=== PATIENT | male | born 1945 | race Caucasian/White ===

== ENCOUNTER 2018-05-12 14:21 | Observation (INO) ==
--- NOTE | 2018-05-12 14:55 | ED ---
HPI General Chief Complaint: Shortness of Breath/Dyspnea Stated Complaint: [facility] Time Seen by Provider: 05/12/18 14:49 Source: patient Mode of arrival: EMS Limitations: no limitations History of Present Illness Patient has been complaining of progressive shortness of breath, [facility] chest which showed a right-sided pleural effusion moderate in size. And afterwards told the patient to call 911 to have the patient transferred to [facility]. Please see allergy list Past medical history significant for [place], hypertension, COPD, anemia, skin cancer , depression, TIA, sleep apnea, lung cancer with malignant effusion in the past , renal disease, mitral valve regurgitation, diabetes... According to patient he had lung fluid drained approximately 1-1/2 years ago. Last lung treatment chemo etc. back in 2011. Related Data Home Medications Medication Instructions Recorded Confirmed alprazolam 0.25 mg PO BID PRN 05/12/18 05/12/18 atenolol 25 mg PO DAILY 05/12/18 05/12/18 budesonide-formoterol 2 puff INHALATION BID 05/12/18 05/12/18 finasteride 5 mg PO DAILY 05/12/18 05/12/18 mirtazapine 15 mg PO DAILY 05/12/18 05/12/18 omeprazole 20 mg PO DAILY 05/12/18 05/12/18 rosuvastatin 40 mg PO DAILY 05/12/18 05/12/18 sertraline 50 mg PO DAILY 05/12/18 05/12/18 tamsulosin 0.4 mg PO DAILY 05/12/18 05/12/18 tiotropium bromide 1 cap INHALATION DAILY 05/12/18 05/12/18 warfarin 5 mg PO DAILY 05/12/18 05/12/18 Allergies Allergy/AdvReac Type Severity Reaction Status Date / Time fluvastatin Allergy Muscle Pain Verified 05/12/18 14:38 gemfibrozil Allergy Muscle Pain Verified 05/12/18 14:38 ipratropium Allergy Hives Verified 05/12/18 14:38 meloxicam Allergy Rash Verified 05/12/18 14:38 methocarbamol Allergy Rash Verified 05/12/18 14:38 niacin Allergy Muscle Pain Verified 05/12/18 14:38 pravastatin Allergy Burning Verified 05/12/18 14:38 simvastatin Allergy Joint Pain Verified 05/12/18 14:38 Review of Systems ROS: all other systems reviewed are negative [facility] Medical History Medical History Anemia (Acute) COPD (chronic obstructive pulmonary disease) (Acute) Depression (Acute) Diabetes (Acute) GERD (gastroesophageal reflux disease) (Acute) HTN (hypertension) (Acute) Lung cancer (Acute) Mitral valve regurgitation (Acute) Myocardial infarct (Acute) Renal disease (Acute) Skin cancer (Acute) Sleep apnea (Acute) TIA (transient ischemic attack) (Acute) Social History Social History Substance History: No History of Abuse Second Hand Smoke Exposure: No Smoking Status: Light tobacco smoker Tobacco Type: Cigarettes How Often Do You Have a Drink Containing Alcohol: Never Recent Travel in [facility] within the Last 8 Weeks: No Recent Out of Country Travel within the Last 8 Weeks: No Immunization History Tetanus Immunization: <5 Years Exam Narrative Exam Narrative: GENERAL: ELDERLY MALE IN no apparent distress. SKIN: Warm and dry. HEAD: Atraumatic. Normocephalic. EYES: Pupils equal and round. No scleral icterus. No injection or drainage. ENT: No nasal bleeding or discharge. Mucous membranes pink and moist. NECK: Trachea midline. No JVD. CARDIOVASCULAR: Regular rate and rhythm. no rubs or gallops RESPIRATORY: No accessory muscle use. Clear to auscultation. LUNG FIELD DECREASED SOUNDS ON RIGHT BUT PRESENT. GASTROINTESTINAL: Abdomen soft, non-tender, nondistended. No rebound or guarding MUSCULOSKELETAL: Extremities without clubbing, cyanosis, or edema. No obvious deformities. NEUROLOGICAL: Awake and alert. No obvious cranial nerve deficits. Motor grossly within normal limits. Five out of 5 muscle strength in the arms and legs. Normal speech. PSYCHIATRIC: Appropriate mood and affect; insight and judgment normal. Course Initial Documented Vital Signs Temperature 97.9 F 05/12/18 14:41 Pulse Rate 64 05/12/18 14:41 Respiratory Rate 21 05/12/18 14:41 Blood Pressure 129/71 05/12/18 14:41 Pulse Oximetry 97 05/12/18 14:41 Last Documented Vital Signs Temperature 97.9 F 05/12/18 14:41 Pulse Rate 64 05/12/18 14:41 Respiratory Rate 21 05/12/18 14:41 Blood Pressure 129/71 05/12/18 14:41 Pulse Oximetry 97 05/12/18 14:41 Sign Out Sign Out Data: Patient Sign Out occurred on 05/12/18 at 15:11. Patient's care was discussed, and care was transferred from Jorje Johnson to Janny Hilton MD. Sign Out Comment: [place] PATIENT WITH MODERATE RIGHT PLEURAL EFFUSION FOR DRAINAGE, OBS Last updated by Jorje Johnson at 05/12/18 15:01 Post-Handoff Eval: Patient has done well in the ED. CXR is clear, but CT report from [place] showed moderate effusion and he does have decreased breath sounds in the R lung base. IR was consulted for drainage by Dr Johnson. The patient has been admitted to the resident service for observation following drainage. Medical Decision Making MDM Narrative Medical Screen Exam Complete: Yes Emergency Medical Condition: Yes Lab Data Result diagrams: 05/12/18 14:53 05/12/18 14:53 Lab Results 05/12/18 05/12/18 05/12/18 Range/Units 14:53 14:53 14:53 WBC 5.4 (4.0-11.0) th/mm3 RBC 4.43 L (4.50-5.90) mil/mm3 Hgb 10.8 L (13.0-17.0) gm/dL Hct 33.8 L (39.0-51.0) % MCV 76.3 L (80.0-100.0) fL MCH 24.5 L (27.0-34.0) pg MCHC 32.1 (32.0-36.0) % RDW 22.8 H (11.6-17.2) % Plt Count 192 (150-450) th/mm3 MPV 7.4 (7.0-11.0) fL Neut % (Auto) 66.3 (16.0-70.0) % Lymph % (Auto) 20.7 (9.0-44.0) % Hays % (Auto) 8.9 H (0.0-8.0) % Eos % (Auto) 3.4 (0.0-4.0) % Baso % (Auto) 0.7 (0.0-2.0) % Neut # (Auto) 3.6 (1.8-7.7) th/mm3 Lymph # (Auto) 1.1 (1.0-4.8) th/mm3 [place]ays # (Auto) 0.5 (0.0-0.9) th/mm3 Eos # (Auto) 0.2 (0.0-0.4) th/mm3 Baso # (Auto) 0.0 (0.0-0.2) th/mm3 WBC Differential . Differential Comment Auto diff final PT 23.4 H (9.8-11.6) sec INR 2.3 Ratio APTT 34.1 H (23.4-31.7) sec Sodium 140 (136-145) meq/L Potassium 3.8 (3.5-5.1) meq/L Chloride 103 (98-107) meq/L Carbon Dioxide 29.3 (21.0-32.0) meq/L Anion Gap 8 (5-15) meq/L BUN 13 (7-18) mg/dL Creatinine 1.09 (0.60-1.30) mg/dL Estimated GFR 67 L (>89) mL/min Random Glucose 86 (74-106) mg/dL Calcium 8.7 (8.5-10.1) mg/dL Total Bilirubin 0.5 (0.2-1.0) mg/dL AST 18 (15-37) U/L ALT 15 (12-78) U/L Alkaline Phosphatase 111 (45-117) U/L Total Creatine Kinase 63 (39-308) U/L Troponin I Less than 0.02 L (0.02-0.05) ng/mL B-Natriuretic Peptide (0-100) pg/mL Total Protein 7.4 (6.4-8.2) g/dL Albumin 3.6 (3.4-5.0) g/dL 05/12/18 Range/Units 14:53 WBC (4.0-11.0) th/mm3 RBC (4.50-5.90) mil/mm3 Hgb (13.0-17.0) gm/dL Hct (39.0-51.0) % MCV (80.0-100.0) fL MCH (27.0-34.0) pg MCHC (32.0-36.0) % RDW (11.6-17.2) % Plt Count (150-450) th/mm3 MPV (7.0-11.0) fL Neut % (Auto) (16.0-70.0) % Lymph % (Auto) (9.0-44.0) % Hays % (Auto) (0.0-8.0) % Eos % (Auto) (0.0-4.0) % Baso % (Auto) (0.0-2.0) % Neut # (Auto) (1.8-7.7) th/mm3 Lymph # (Auto) (1.0-4.8) th/mm3 Hays # (Auto) (0.0-0.9) th/mm3 Eos # (Auto) (0.0-0.4) th/mm3 Baso # (Auto) (0.0-0.2) th/mm3 WBC Differential Differential Comment PT (9.8-11.6) sec INR Ratio APTT (23.4-31.7) sec Sodium (136-145) meq/L Potassium (3.5-5.1) meq/L Chloride (98-107) meq/L Carbon Dioxide (21.0-32.0) meq/L Anion Gap (5-15) meq/L BUN (7-18) mg/dL Creatinine (0.60-1.30) mg/dL Estimated GFR (>89) mL/min Random Glucose (74-106) mg/dL Calcium (8.5-10.1) mg/dL Total Bilirubin (0.2-1.0) mg/dL AST (15-37) U/L ALT (12-78) U/L Alkaline Phosphatase (45-117) U/L Total Creatine Kinase (39-308) U/L Troponin I (0.02-0.05) ng/mL B-Natriuretic Peptide 268 H (0-100) pg/mL Total Protein (6.4-8.2) g/dL Albumin (3.4-5.0) g/dL Imaging Data Radiologist's impression: Chest X-Ray 05/12/18 14:51 CONCLUSION: Chronic interstitial changes and mild cardiomegaly. Discharge Plan Discharge Disposition Patient Disposition: 30 Still Patient Discharge Condition Condition: Stable Discharge Details Diagnosis: Pleural effusion Physicians Team ED Provider: Janny Hilton Primary Care Provider: [facility],Physician [place] /Orders / Referrals /Forms Prescriptions: No Action omeprazole 20 mg Capsule,Delayed Release(Dr/Ec) 20 mg PO DAILY RF: 0 mirtazapine 15 mg Tablet 15 mg PO DAILY RF: 0 finasteride 5 mg Tablet 5 mg PO DAILY RF: 0 rosuvastatin 40 mg Tablet 40 mg PO DAILY RF: 0 sertraline 100 mg Tablet 50 mg PO DAILY RF: 0 alprazolam 0.25 mg Tablet 0.25 mg PO BID PRN (Reason: Anxiety) RF: 0 tamsulosin 0.4 mg Capsule 0.4 mg PO DAILY RF: 0 warfarin 5 mg Tablet 5 mg PO DAILY RF: 0 atenolol 50 mg Tablet 25 mg PO DAILY RF: 0 tiotropium bromide 18 mcg Capsule, W/Inhalation Device 1 cap INHALATION DAILY RF: 0 budesonide-formoterol 160-4.5 mcg/actuation Hfa Aerosol Inhaler 2 puff INHALATION BID RF: 0 Discharge Interventions Interventions: Vital Signs Last Done: 05/12/18 14:41 Status ED Status: With Doctor
[2018-05-12 15:14] LABS: Baso % (Auto) 0.7 % (0.0-2.0); Eos # (Auto) 0.2 th/mm3 (0.0-0.4); Eos % (Auto) 3.4 % (0.0-4.0); Hematocrit 33.8 % (39.0-51.0); Hemoglobin 10.8 gm/dL (13.0-17.0); Lymph # (Auto) 1.1 th/mm3 (1.0-4.8); Lymph % (Auto) 20.7 % (9.0-44.0); Mean Corpuscular HGB Conc 32.1 % (32.0-36.0); Mean Corpuscular Hemoglobin 24.5 pg (27.0-34.0); Mean Corpuscular Volume 76.3 fL (80.0-100.0); Mean Platelet Volume 7.4 fL (7.0-11.0); Mono # (Auto) 0.5 th/mm3 (0.0-0.9); Mono % (Auto) 8.9 % (0.0-8.0); Neut # (Auto) 3.6 th/mm3 (1.8-7.7); Neut % (Auto) 66.3 % (16.0-70.0); Platelet Count 192 th/mm3 (150-450); Red Blood Count 4.43 mil/mm3 (4.50-5.90); Red Cell Distribution Width 22.8 % (11.6-17.2); White Blood Count 5.4 th/mm3 (4.0-11.0)
--- NOTE | 2018-05-12 15:22 | XR ---
EXAM DATE: 05/12/2018 3:19 PM EST AGE/SEX: 72 years / Male INDICATIONS: Shortness of breath. CLINICAL DATA: This is the patient's initial encounter. Patient reports that signs and symptoms have been present for 2 days and indicates a pain score of 0/10. MEDICAL/SURGICAL HISTORY: Hypertension. Chronic obstructive pulmonary disease. Diabetes. None . COMPARISON: No prior exams available for comparison. FINDINGS: The cardiac and mediastinal contours demonstrate mild cardiomegaly. There are chronic interstitial ch anges within the parenchyma. There is no overt congestive failure. No pleural effusion is seen. The b julio structures demonstrate degenerative changes in the AC joint but are otherwise intact. CONCLUSION: Chronic interstitial changes and mild cardiomegaly. Electronically signed by: Quinton Sierra MD 05/12/2018 3:21 PM EST
[2018-05-12 15:30] LABS: Activated Partial Thrombo Time 34.1 sec (23.4-31.7); INR 2.3 Ratio; Prothrombin Time 23.4 sec (9.8-11.6)
[2018-05-12 15:37] LABS: Albumin 3.6 g/dL (3.4-5.0); Anion Gap 8 meq/L (5-15); Aspartate Aminotransferase 18 U/L (15-37); Blood Urea Nitrogen 13 mg/dL (7-18); Calcium 8.7 mg/dL (8.5-10.1); Carbon Dioxide 29.3 meq/L (21.0-32.0); Chloride 103 meq/L (98-107); Glomerular Filtration Rate 67 mL/min (>89); Glucose,Random 86 mg/dL (74-106); Potassium 3.8 meq/L (3.5-5.1); Sodium 140 meq/L (136-145)
[2018-05-12 15:41] LABS: Alanine Aminotransferase 15 U/L (12-78); Alkaline Phosphatase 111 U/L (45-117); Total Protein 7.4 g/dL (6.4-8.2)
[2018-05-12 15:42] LABS: Creatine Kinase 63 U/L (39-308)
--- NOTE | 2018-05-12 16:30 | P.HPFP ---
History of Present Illness Primary Care Physician: [facility]ician [facility] <Quinten Davenport - 05/12/18 21:08> [facility] <DarlynmojganvelmaCong - 05/12/18 17:12> History of Present Illness: Very pleasant 72 year old man with a h/o lung cancer , radiation fibrosis of the lungs, a-fib, prior MO, T2DM, CKD, MVR, prior TIA, iron-deficiency anemia, and HTN who was sent to the ED from the [facility] after a CT chest w/o contrast today showed: recurrent moderate right sided pleural effusion , new trace left pleural effusion, minimally increased airspace disease at the right lung apex, increased right lower lobe nodular opacities measuring up to 0.4 x 0.6 cm. The patient presented to the [facility] ED due to progressive dyspnea. He reports he was diagnosed with lung cancer back in 2008 and underwent chemo and radiation therapy up until early 2011. He states he has been in remission since then. The patient reports he had been treated for pneumonia in the past most recently about one year ago, and does report having had issues with recurrent pleural effusion; however he denies ever having had a thoracentesis in the past. He denies shortness of breath currently. He denies chest tightness, chest pain, cough, fevers, headaches, abdominal pain. He states he otherwise feels well. Has been feeling dyspneic for about the past one week. He follows with an oncologist at the [facility], Dr. Allen. 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 Currently lives with his daughter. Endorses heavy cigarette smoking history up to 2-3 PPD for 40 years but now smoking just a few cigarettes every other day for the past ten days. <PaulCong horn - 05/12/18 17:28> - Diagnosis (1) Pleural effusion (2) Dyspnea (3) Anemia (4) Hypertension (5) BPH (benign prostatic hyperplasia) (6) COPD (chronic obstructive pulmonary disease) (7) Atrial fibrillation (8) T2DM (type 2 diabetes mellitus) (9) Lung cancer (10) Depression (11) CKD (chronic kidney disease) <DevinQuinten chase 05/12/18 21:08> (1) Pleural effusion (2) Dyspnea (3) Anemia (4) Hypertension (5) BPH (benign prostatic hyperplasia) (6) COPD (chronic obstructive pulmonary disease) (7) Atrial fibrillation (8) T2DM (type 2 diabetes mellitus) (9) Lung cancer (10) Depression (11) CKD (chronic kidney disease) <MaggyCong 05/12/18 17:12> Review of Systems Constitutional: Denies body ache(s), Denies chills, Denies fever(s), Denies malaise, Denies night sweats <[facility] 05/12/18 17:12> Eyes: Denies change in vision, Denies double vision <[facility] 05/12 17:12> Ears, Nose, Mouth, and Throat: Denies headache(s), Denies neck pain < [facility] 05/12/18 17:12> Cardiovascular: Reports shortness of breath, Denies chest pain, Denies chest pain at rest <[facility] 05/12/18 17:12> Respiratory: Reports shortness of breath, Denies cough <[facility] 17:12> Gastrointestinal: Reports heartburn, Denies abdominal pain, Denies black, tarry stools, Denies change in bowel habits, Denies cramping, Denies nausea < [facility] 05/12/18 17:12> Genitourinary: Denies decreased urination, Denies difficulty urinating, Denies urinary frequency, Denies urinary incontinence, Denies urinary urgency < DarlynismaCong 05/12/18 17:12> [facility] - History History Provided By: Patient <DarlynismaCong 05/12/18 16:30> - Medical History Medical History: Medical History (Last Reviewed 05/12/18 @ 14:54 by Jorje Johnson) Anemia COPD (chronic obstructive pulmonary disease) Depression Diabetes GERD (gastroesophageal reflux disease) HTN (hypertension) Lung cancer Mitral valve regurgitation Myocardial infarct Renal disease Skin cancer Sleep apnea TIA (transient ischemic attack) <Quinten Davenport - 05/12/18 21:08> Medical History (Last Reviewed 05/12/18 @ 14:54 by Jorje Johnson) Anemia COPD (chronic obstructive pulmonary disease) Depression Diabetes GERD (gastroesophageal reflux disease) HTN (hypertension) Lung cancer Mitral valve regurgitation Myocardial infarct Renal disease Skin cancer Sleep apnea TIA (transient ischemic attack) <Cong Winter 05/12/18 16:30> - Tobacco History Second Hand Smoke Exposure: No <Cong Winter 05/12/18 16:30> Tobacco Use In Past 30 Days: Yes <Cong Winter 05/12/18 16:30> Smoking Status: Light tobacco smoker <Cong Winter 05/12/18 16:30> Tobacco Type: Cigarettes <Cong Winter 05/12/18 16:30> - Alcohol History How Often Do You Have a Drink Containing Alcohol: Never <Cong Winter 05/12/18 16:30> - Substance Use History Substance History: No History of Abuse <Cong Winter 05/12/18 16:30> - Travel History Recent Travel in the [facility] Within the Last 8 Weeks: No <Cong Winter 16:30> Recent Travel Out of the Country Within the Last 8 Weeks: No <Cong Winter 05/12/18 16:30> - Immunization History Tetanus Immunization: <5 Years <Cong Winter 05/12/18 16:30> Medications and Allergies Allergies Allergy/AdvReac Type Severity Reaction Status Date / Time fluvastatin Allergy Muscle Pain Verified 05/12/18 14:38 gemfibrozil Allergy Muscle Pain Verified 05/12/18 14:38 ipratropium Allergy Hives Verified 05/12/18 14:38 meloxicam Allergy Rash Verified 05/12/18 14:38 methocarbamol Allergy Rash Verified 05/12/18 14:38 niacin Allergy Muscle Pain Verified 05/12/18 14:38 pravastatin Allergy Burning Verified 05/12/18 14:38 simvastatin Allergy Joint Pain Verified 05/12/18 14:38 <Quinten Davenport - 05/12/18 21:08> Home Medications Medication Instructions Recorded Confirmed Type alprazolam 0.25 mg PO BID PRN 05/12/18 05/12/18 History atenolol 25 mg PO DAILY 05/12/18 05/12/18 History budesonide-formoterol 2 puff INHALATION BID 05/12/18 05/12/18 History finasteride 5 mg PO DAILY 05/12/18 05/12/18 History mirtazapine 15 mg PO DAILY 05/12/18 05/12/18 History omeprazole 20 mg PO DAILY 05/12/18 05/12/18 History rosuvastatin 40 mg PO DAILY 05/12/18 05/12/18 History sertraline 50 mg PO DAILY 05/12/18 05/12/18 History tamsulosin 0.4 mg PO DAILY 05/12/18 05/12/18 History tiotropium bromide 1 cap INHALATION DAILY 05/12/18 05/12/18 History warfarin 5 mg PO DAILY 05/12/18 05/12/18 History <Quinten Davenport K - 05/12/18 21:08> Active Medications: Active Medications Acetaminophen (Tylenol) 650 mg PO Q4H PRN PRN Reason: Temp > 100.4 Al Hydroxide/Mg Hydroxide (Milk Of Magnesia Liq) 30 ml PO Q12H PRN PRN Reason: Mild Constipation Albuterol (Albuterol Neb (Prn)) 2.5 mg NEB Q2HR NEB PRN PRN Reason: SHORTNESS OF BREATH/WHEEZING Alprazolam (Xanax) 0.25 mg PO Q8H PRN PRN Reason: ANXIETY Atenolol (Tenormin) 25 mg PO DAILY RAMIN Bisacodyl (Dulcolax Supp) 10 mg RECTAL DAILY PRN PRN Reason: SEVERE CONSITIPATION Budesonide/Formoterol Fumarate (Symbicort 160/4.5 Mcg Inh) 2 puff INH BID [facility] Last Admin: 05/12/18 20:56 Dose: 2 puff Dextrose (D50w Vial) 50 ml IV.PUSH UNSCH PRN PRN Reason: PER HYPOGLYCEMIA PROTOCOL Finasteride (Proscar) 5 mg PO DAILY RAMIN Gabapentin (Neurontin) 300 mg PO HS RAMIN Last Admin: 05/12/18 20:57 Dose: 300 mg Glucagon (Glucagon Inj) 1 mg OTHER PRN PRN PRN Reason: for Hypoglycemia Protocol Insulin Aspart (Novolog Insulin Correctional Sugar Inj) 0 unit SQ ACHS AND 3AM RAMIN; Protocol Last Admin: 05/12/18 18:05 Dose: Not Given Lactulose (Lactulose Liq) 30 ml PO DAILY PRN PRN Reason: SEVERE CONSITIPATION Mirtazapine (Remeron) 15 mg PO HS [facility] Last Admin: 05/12/18 20:57 Dose: 15 mg Ondansetron HCl (Zofran Inj) 4 mg IV.PUSH Q6H PRN PRN Reason: NAUSEA OR VOMITING Pantoprazole Sodium (Protonix) 20 mg PO DAILY [facility] Senna/Docusate Sodium (Rosa-Colace) 1 tab PO BID [facility] Last Admin: 05/12/18 20:57 Dose: Not Given Sertraline HCl (Zoloft) 50 mg PO DAILY [facility] Tamsulosin HCl (Flomax) 0.4 mg PO DAILY [facility] <Quinten Davenport - 05/12/18 21:08> Exam Vital signs: Vital Signs 05/12/18 14:41 05/12/18 14:51 05/12/18 16:59 Temperature 97.9 F Pulse Rate 64 62 Respiratory Rate 21 18 Blood Pressure 129/71 129/71 Pulse Oximetry 97 98 97 05/12/18 18:08 05/12/18 19:17 05/12/18 20:00 Temperature 98.1 F 98.2 F Pulse Rate 69 64 67 Respiratory Rate 21 Blood Pressure 142/71 H 134/71 Pulse Oximetry 97 96 Intake & Output 05/12/18 05/12/18 05/13/18 06:59 18:59 06:59 Weight 109.316 kg Other: Date of Last Bowel Movement 05/12/18 <Quinten Davenport Ana - 05/12/18 21:08> Vital Signs 05/12/18 14:41 Temperature 97.9 F Pulse Rate 64 Respiratory Rate 21 Blood Pressure 129/71 Pulse Oximetry 97 Intake & Output 05/11/18 05/12/18 05/12/18 18:59 06:59 18:59 Weight 109.316 kg <Kristen Wintersh - 05/12/18 16:30> Narrative: GENERAL: NAD, resting comfortably in bed NEURO: AOx3. Normal speech. rn registry grossly intact. SKIN: Warm and dry. HEAD: Normocephalic. Atraumatic. EYES: PERRL. EOMI. No scleral icterus. No injection or drainage. ENT: No nasal drainage. Moist mucous membranes. No oral ulcers or lesions. NECK: Supple, trachea midline. No JVD. No carotid bruits. CARDIOVASCULAR: Regular rate and rhythm without murmurs, gallops, or rubs. Peripheral pulses 2+. Capillary refill < 2 seconds. RESPIRATORY: Breath sounds are diminished at the right lung base, bibasilar rales, no wheezing appreciated. No respiratory distress. GASTROINTESTINAL: Abdomen soft, non-tender, nondistended, normal BS. No organomegaly or masses. MUSCULOSKELETAL: No lower extremity edema. BACK: Nontender without obvious deformity. <Cong Winter - 05/12/18 17:12> - Constitutional mild distress <Cong Winter - 05/12/18 17:12> Results - Labs Result diagrams: 05/12/18 14:53 05/12/18 14:53 <Quinten Davenport - 05/12/18 21:08> Abnormal lab results 05/12/18 05/12/18 05/12/18 Range/Units 14:53 14:53 14:53 RBC 4.43 L (4.50-5.90) mil/mm3 Hgb 10.8 L (13.0-17.0) gm/dL Hct 33.8 L (39.0-51.0) % MCV 76.3 L (80.0-100.0) fL MCH 24.5 L (27.0-34.0) pg RDW 22.8 H (11.6-17.2) % Haakon % (Auto) 8.9 H (0.0-8.0) % PT 23.4 H (9.8-11.6) sec APTT 34.1 H (23.4-31.7) sec Estimated GFR 67 L (>89) mL/min Troponin I Less than 0.02 L (0.02-0.05) ng/mL B-Natriuretic Peptide (0-100) pg/mL 05/12/18 Range/Units 14:53 RBC (4.50-5.90) mil/mm3 Hgb (13.0-17.0) gm/dL Hct (39.0-51.0) % MCV (80.0-100.0) fL MCH (27.0-34.0) pg RDW (11.6-17.2) % Haakon % (Auto) (0.0-8.0) % PT (9.8-11.6) sec APTT (23.4-31.7) sec Estimated GFR (>89) mL/min Troponin I (0.02-0.05) ng/mL B-Natriuretic Peptide 268 H (0-100) pg/mL Short CBC 05/12/18 Range/Units 14:53 WBC 5.4 (4.0-11.0) th/mm3 Hgb 10.8 L (13.0-17.0) gm/dL Hct 33.8 L (39.0-51.0) % Plt Count 192 (150-450) th/mm3 BMP 05/12/18 14:53 Sodium 140 Potassium 3.8 Chloride 103 Carbon Dioxide 29.3 BUN 13 Creatinine 1.09 Calcium 8.7 Cardiac Enzymes 05/12/18 Range/Units 14:53 Total Creatine Kinase 63 (39-308) U/L Troponin I Less than 0.02 L (0.02-0.05) ng/mL Liver Function 05/12/18 Range/Units 14:53 Total Bilirubin 0.5 (0.2-1.0) mg/dL AST 18 (15-37) U/L ALT 15 (12-78) U/L Alkaline Phosphatase 111 (45-117) U/L Albumin 3.6 (3.4-5.0) g/dL <Quinten Davenport - 05/12/18 21:08> Abnormal lab results 05/12/18 05/12/18 05/12/18 Range/Units 14:53 14:53 14:53 RBC 4.43 L (4.50-5.90) mil/mm3 Hgb 10.8 L (13.0-17.0) gm/dL Hct 33.8 L (39.0-51.0) % MCV 76.3 L (80.0-100.0) fL MCH 24.5 L (27.0-34.0) pg RDW 22.8 H (11.6-17.2) % Haakon % (Auto) 8.9 H (0.0-8.0) % PT 23.4 H (9.8-11.6) sec APTT 34.1 H (23.4-31.7) sec Estimated GFR 67 L (>89) mL/min Troponin I Less than 0.02 L (0.02-0.05) ng/mL B-Natriuretic Peptide (0-100) pg/mL 05/12/18 Range/Units 14:53 RBC (4.50-5.90) mil/mm3 Hgb (13.0-17.0) gm/dL Hct (39.0-51.0) % MCV (80.0-100.0) fL MCH (27.0-34.0) pg RDW (11.6-17.2) % Haakon % (Auto) (0.0-8.0) % PT (9.8-11.6) sec APTT (23.4-31.7) sec Estimated GFR (>89) mL/min Troponin I (0.02-0.05) ng/mL B-Natriuretic Peptide 268 H (0-100) pg/mL Short CBC 05/12/18 Range/Units 14:53 WBC 5.4 (4.0-11.0) th/mm3 Hgb 10.8 L (13.0-17.0) gm/dL Hct 33.8 L (39.0-51.0) % Plt Count 192 (150-450) th/mm3 BMP 05/12/18 14:53 Sodium 140 Potassium 3.8 Chloride 103 Carbon Dioxide 29.3 BUN 13 Creatinine 1.09 Calcium 8.7 Cardiac Enzymes 05/12/18 Range/Units 14:53 Total Creatine Kinase 63 (39-308) U/L Troponin I Less than 0.02 L (0.02-0.05) ng/mL Liver Function 05/12/18 Range/Units 14:53 Total Bilirubin 0.5 (0.2-1.0) mg/dL AST 18 (15-37) U/L ALT 15 (12-78) U/L Alkaline Phosphatase 111 (45-117) U/L Albumin 3.6 (3.4-5.0) g/dL <Cong Winter - 05/12/18 16:30> - Imaging Impressions Chest X-Ray 05/12/18 14:51 CONCLUSION: Chronic interstitial changes and mild cardiomegaly. <Quinten Davenport - 05/12/18 21:08> Impressions Chest X-Ray 05/12/18 14:51 CONCLUSION: Chronic interstitial changes and mild cardiomegaly. <Cong Winter - 05/12/18 16:30> Caprini VTE Risk Assessment Caprini VTE Risk Assessment: Moderate/High Risk (score >= 2) <Cong Winter 05/12/18 17:12> Caprini Risk Assessment Model: Point Value = 1 Point Value = 2 Point Value = 3 Point Value = 5 Age 41-60 Minor surgery BMI > 25 kg/m2 Swollen legs Varicose veins or History of unexplained or recurrent spontaneous Oral contraceptives or hormone replacement Sepsis (< 1 month) Serious lung disease, including pneumonia (< 1 month) Abnormal pulmonary function Acute myocardial infarction Congestive heart failure (< 1 month) History of inflammatory bowel disease Medical patient at bed rest Age 61-74 Arthroscopic surgery Major open surgery (> 45 min) Laparoscopic surgery (> 45 min) Malignancy Confined to bed (> 72 hours) Immobilizing plaster cast Central venous access Age >= 75 History of VTE Family history of VTE Factor V Leiden Prothrombin [id number] Lupus anticoagulant Anticardiolipin antibodies Elevated serum homocysteine Heparin-induced thrombocytopenia Other congenital or acquired thrombophilia Stroke (< 1 month) Elective arthroplasty Hip, pelvis, or leg fracture Acute spinal cord injury (< 1 month) <Quinten Davenport 05/12/18 21:08> Point Value = 1 Point Value = 2 Point Value = 3 Point Value = 5 Age 41-60 Minor surgery BMI > 25 kg/m2 Swollen legs Varicose veins or History of unexplained or recurrent spontaneous Oral contraceptives or hormone replacement Sepsis (< 1 month) Serious lung disease, including pneumonia (< 1 month) Abnormal pulmonary function Acute myocardial infarction Congestive heart failure (< 1 month) History of inflammatory bowel disease Medical patient at bed rest Age 61-74 Arthroscopic surgery Major open surgery (> 45 min) Laparoscopic surgery (> 45 min) Malignancy Confined to bed (> 72 hours) Immobilizing plaster cast Central venous access Age >= 75 History of VTE Family history of VTE Factor V Leiden Prothrombin [id number] Lupus anticoagulant Anticardiolipin antibodies Elevated serum homocysteine Heparin-induced thrombocytopenia Other congenital or acquired thrombophilia Stroke (< 1 month) Elective arthroplasty Hip, pelvis, or leg fracture Acute spinal cord injury (< 1 month) <Cong Winter 05/12/18 16:30> Prophylaxis Regimen: Total Risk Factor Score Risk Level Prophylaxis Regimen 0-1 Low Early ambulation 2 Moderate Order ONE of the following: *Sequential Compression Device (SCD) *Heparin 5000 units SQ BID 3-4 Higher Order ONE of the following medications: *Heparin 5000 units SQ TID *Enoxaparin/Lovenox 40 mg SQ daily (WT < 150 kg, CrCl > 30 mL/min) *Enoxaparin/Lovenox 30 mg SQ daily (WT < 150 kg, CrCl > 10-29 mL/min) *Enoxaparin/Lovenox 30 mg SQ BID (WT < 150 kg, CrCl > 30 mL/min) AND/OR *Sequential Compression Device (SCD) 5 or more Highest Order ONE of the following medications: *Heparin 5000 units SQ TID (Preferred with Epidurals) *Enoxaparin/Lovenox 40 mg SQ daily (WT < 150 kg, CrCl > 30 mL/min) *Enoxaparin/Lovenox 30 mg SQ daily (WT < 150 kg, CrCl > 10-29 mL/min) *Enoxaparin/Lovenox 30 mg SQ BID (WT < 150 kg, CrCl > 30 mL/min) AND *Sequential Compression Device (SCD) <Quinten Davenport - 05/12/18 21:08> Total Risk Factor Score Risk Level Prophylaxis Regimen 0-1 Low Early ambulation 2 Moderate Order ONE of the following: *Sequential Compression Device (SCD) *Heparin 5000 units SQ BID 3-4 Higher Order ONE of the following medications: *Heparin 5000 units SQ TID *Enoxaparin/Lovenox 40 mg SQ daily (WT < 150 kg, CrCl > 30 mL/min) *Enoxaparin/Lovenox 30 mg SQ daily (WT < 150 kg, CrCl > 10-29 mL/min) *Enoxaparin/Lovenox 30 mg SQ BID (WT < 150 kg, CrCl > 30 mL/min) AND/OR *Sequential Compression Device (SCD) 5 or more Highest Order ONE of the following medications: *Heparin 5000 units SQ TID (Preferred with Epidurals) *Enoxaparin/Lovenox 40 mg SQ daily (WT < 150 kg, CrCl > 30 mL/min) *Enoxaparin/Lovenox 30 mg SQ daily (WT < 150 kg, CrCl > 10-29 mL/min) *Enoxaparin/Lovenox 30 mg SQ BID (WT < 150 kg, CrCl > 30 mL/min) AND *Sequential Compression Device (SCD) <Cong Winter - 05/12/18 16:30> Assessment and Plan - Assessment (1) Pleural effusion Code(s): J90 - Pleural effusion, not elsewhere classified Status: Acute (2) Dyspnea Code(s): R06.00 - Dyspnea, unspecified Status: Acute (3) Anemia Code(s): D64.9 - Anemia, unspecified Status: Chronic (4) Hypertension Code(s): I10 - Essential (primary) hypertension Status: Chronic (5) BPH (benign prostatic hyperplasia) Code(s): N40.0 - Benign prostatic hyperplasia without lower urinary tract symptoms Status: Chronic (6) COPD (chronic obstructive pulmonary disease) Code(s): J44.9 - Chronic obstructive pulmonary disease, unspecified Status: Chronic (7) Atrial fibrillation Code(s): I48.91 - Unspecified atrial fibrillation Status: Chronic (8) T2DM (type 2 diabetes mellitus) Code(s): E11.9 - Type 2 diabetes mellitus without complications Status: Chronic (9) Lung cancer Code(s): C34.90 - Malignant neoplasm of unspecified part of unspecified bronchus or lung Status: Chronic (10) Depression Code(s): F32.9 - Major depressive disorder, single episode, unspecified Status : Chronic (11) CKD (chronic kidney disease) Code(s): N18.9 - Chronic kidney disease, unspecified Status: Chronic <Quinten Davenport - 05/12/18 21:08> (1) Pleural effusion Code(s): J90 - Pleural effusion, not elsewhere classified Status: Acute (2) Dyspnea Code(s): R06.00 - Dyspnea, unspecified Status: Acute (3) Anemia Code(s): D64.9 - Anemia, unspecified Status: Chronic (4) Hypertension Code(s): I10 - Essential (primary) hypertension Status: Chronic (5) BPH (benign prostatic hyperplasia) Code(s): N40.0 - Benign prostatic hyperplasia without lower urinary tract symptoms Status: Chronic (6) COPD (chronic obstructive pulmonary disease) Code(s): J44.9 - Chronic obstructive pulmonary disease, unspecified Status: Chronic (7) Atrial fibrillation Code(s): I48.91 - Unspecified atrial fibrillation Status: Chronic (8) T2DM (type 2 diabetes mellitus) Code(s): E11.9 - Type 2 diabetes mellitus without complications Status: Chronic (9) Lung cancer Code(s): C34.90 - Malignant neoplasm of unspecified part of unspecified bronchus or lung Status: Chronic (10) Depression Code(s): F32.9 - Major depressive disorder, single episode, unspecified Status : Chronic (11) CKD (chronic kidney disease) Code(s): N18.9 - Chronic kidney disease, unspecified Status: Chronic <KandavanamCong - 05/12/18 17:12> - Assessment and Plan Very pleasant 72 year old man with a h/o lung cancer, radiation fibrosis of the lungs, a-fib, prior MO, CKD, MVR, prior TIA, HTN being admitted due to recurrent pleural effusions. Pleural effusion - ED physician discussed patient case with IR, consult is placed for thoracentesis - Ordered pleural fluid studies for analysis as patient reports it has been at least over one year since having had a pleural effusion, per patient report this is his first thoracentesis - Patient appears comfortable at this time, not concerned for infectious etiology, VS are wnl, no leukocytosis - Albuterol nebs q2h prn SOB/wheezing, patient has documented severe allergy to ipratropium - Continuous pulse oximetry monitoring, supplemental oxygen if needed to maintain O2 sats > 92% A-fib - Currently in RRR - Continue atenolol - Hold warfarin ahead of thoracentesis, patient reports his last time taking warfarin was in the evening of 05/11. Did not take today's (05/12) dose - Monitor INR COPD - Continue home symbicort - Albuterol nebs q2h prn HTN - Well controlled on admission - Continue home atenolol, per review of records from the [facility] patient is not on other antihypertensives - Monitor vitals q4h CKD: per patient's record has h/o CKD stage 3, GFR 67 on admission, continue to monitor BPH: continue tamsulosin Anemia: chronic, known EDMAR, continue to monitor Depression: continue mirtazapine T2DM: patient reports this is diet-controlled, not on any home oral agents or insulin, monitor BGs ACHS for now Fluids: per PO Nutrition: heart healthy DVT ppx: b/l SCDs only <PauldavanCong carreon - 05/12/18 17:28> Discussed Condition With: Dr. Krystina Hilton <Cong Winter - 05/12/18 17:28> - Attending Attestation The exam, history, and the medical decision-making described in the above note were completed with the assistance of the resident physician. I reviewed and agree with the findings presented. I attest that I had a [id number] encounter with the patient on the same day, and personally performed and documented my assessment and findings in the medical record. 72 yo M with hx of lung CA, Afib, MVR supposedly in remission since 2011 sent here from [place] ED where he usually gets his care for a pulmonary effusion noted on CT scan. he has had these before but years since drainage. He is satting 98% on 2L o2 on exam and is not dyspneic but does have bilateral wheezes and decreased lung sounds, more decreased at right base. He did have some stable lung nodules on CT. Will hold warfarin tonight and try to get thoracentesis here soon. send for fluid studies including cytology and culture. Will also get ECHO and diurese as needed. d/w Dr Flaherty <Quinten Davenport - 05/12/18 21:08>
[2018-05-12] MEDS ORDERED: Acetaminophen 325 MG Tablet PO PRN (16:41)
[2018-05-12] MEDS ORDERED: Bisacodyl 10 MG Supp RECTAL PRN (16:41)
[2018-05-12] MEDS ORDERED: ALPRAZolam 0.25 MG Tablet PO PRN (16:45)
[2018-05-12] MEDS ORDERED: Dextrose 50% in Water 50 ML Vial IV.PUSH PRN (16:49)
[2018-05-12 17:31] LABS: Lactate Dehydrogenase 155 U/L (87-241)
[2018-05-12] MEDS: Insulin NovoLOG Aspart Correctional Sugar Inj SQ SCH ×2 (18:05→21:43)
[2018-05-12] MEDS: Budesonide-Formoterol 160/4.5 MCG 6 GM Inhaler INH SCH (20:56)
[2018-05-12] MEDS: Senna/Docusate Sodium 8.6/50 MG Tablet PO SCH (20:57)
[2018-05-12] MEDS ORDERED: Mirtazapine 15 MG Tablet PO SCH (21:00)
[2018-05-12] MEDS ORDERED: Gabapentin 300 MG Capsule PO SCH (21:00)
[2018-05-13] MEDS: Insulin NovoLOG Aspart Correctional Sugar Inj SQ SCH ×3 (04:38→13:20)
[2018-05-13 08:55] LABS: Baso % (Auto) 0.4 % (0.0-2.0); Eos # (Auto) 0.1 th/mm3 (0.0-0.4); Eos % (Auto) 2.4 % (0.0-4.0); Hematocrit 34.5 % (39.0-51.0); Hemoglobin 10.8 gm/dL (13.0-17.0); Lymph % (Auto) 17.1 % (9.0-44.0); Mean Corpuscular HGB Conc 31.3 % (32.0-36.0); Mean Corpuscular Hemoglobin 23.8 pg (27.0-34.0); Mean Corpuscular Volume 76.1 fL (80.0-100.0); Mean Platelet Volume 7.4 fL (7.0-11.0); Mono # (Auto) 0.4 th/mm3 (0.0-0.9); Mono % (Auto) 7.4 % (0.0-8.0); Neut # (Auto) 4.2 th/mm3 (1.8-7.7); Neut % (Auto) 72.7 % (16.0-70.0); Platelet Count 190 th/mm3 (150-450); Red Blood Count 4.53 mil/mm3 (4.50-5.90); White Blood Count 5.8 th/mm3 (4.0-11.0)
[2018-05-13] MEDS ORDERED: Sertraline 50 MG Tablet PO SCH (09:00)
[2018-05-13] MEDS ORDERED: Pantoprazole Sodium 20 MG DR Tablet PO SCH (09:00)
[2018-05-13] MEDS ORDERED: Atenolol 25 MG Tablet PO SCH (09:00)
[2018-05-13] MEDS ORDERED: Finasteride 5 MG Tablet PO SCH (09:00)
--- NOTE | 2018-05-13 09:08 | US ---
EXAM DATE: 05/13/2018 9:03 AM EST AGE/SEX: 72 years / Male INDICATIONS: Right pleural effusion. CLINICAL DATA: This is the patient's initial encounter. Patient reports that signs and symptoms have been present for 2 days and indicates a pain score of 2/10. MEDICAL/SURGICAL HISTORY: Diabetes. Carcinoma, lung. Anemia. COPD. Depression. GERD. HTN. Mi tral valve regurgitation. OH. Renal disease. Skin cancer. TIA. Sleep apnea. BPH. None. COMPARISON: No prior exams available for comparison. MEASUREMENTS: Skin To Parietal Pleura:__Inadequate fluid. cm Skin To Max Safe Depth:__Inadequate fluid. cm Estimated Fluid Volume:__210 cc Fluid Composition:__simple FINDINGS: No marking was performed. CONCLUSION: 1. Right pleural fluid volume insufficient for safe ultrasound-guided thoracentesis. 2. If there is concern regarding additional pleural fluid which might be loculated or otherwise appr opriate for CT Guided Drainage, a CT chest examination is suggested Electronically signed by: Sergei Ba MD 05/13/2018 9:06 AM EST
[2018-05-13 09:14] LABS: INR 1.8 Ratio; Prothrombin Time 17.9 sec (9.8-11.6)
[2018-05-13 09:19] LABS: Calcium 8.4 mg/dL (8.5-10.1); Potassium 4.4 meq/L (3.5-5.1)
[2018-05-13] MEDS: Senna/Docusate Sodium 8.6/50 MG Tablet PO SCH (10:13)
[2018-05-13] MEDS: Budesonide-Formoterol 160/4.5 MCG 6 GM Inhaler INH SCH (10:13)
--- NOTE | 2018-05-13 12:42 | ECG ---
Date Performed: 05/12/2018 Time Performed: 14:50:09 PTAGE: 72 years EKG: ATRIAL FIBRILLATION WITH SLOW VENTRICULAR RESPONSE LOW QRS VOLTAGE IN EXTREMITY LEADS SEPTA L MYOCARDIAL INFARCTION ABNORMAL ECG PREVIOUS TRACING : 09/20/1996 19.33 DOCTOR: Narciso Infante Interpretating Date/Time 05/13/2018 12:40:33
--- NOTE | 2018-05-13 13:50 | P.PNFP ---
Subjective Interval history: No acute events overnight. Patient seen and examined this AM. Remains afebrile, vitals stable. Patient reports his dyspnea has improved since admission. Currently off oxygen this morning while eating breakfast and denies shortness of breath. Specifically denies fevers, cough, CP, abdominal pain. <Cong Winter - 05/13/18 14:53> Results - Labs Result diagrams: 05/13/18 08:22 05/13/18 08:22 <Quinten Davenport - 05/13/18 17:43> Abnormal lab results 05/12/18 05/13/18 05/13/18 Range/Units 21:06 08:22 08:22 Hgb 10.8 L (13.0-17.0) gm/dL Hct 34.5 L (39.0-51.0) % MCV 76.1 L (80.0-100.0) fL MCH 23.8 L (27.0-34.0) pg MCHC 31.3 L (32.0-36.0) % RDW 22.0 H (11.6-17.2) % Neut % (Auto) 72.7 H (16.0-70.0) % PT 17.9 H (9.8-11.6) sec Estimated GFR (>89) mL/min POC Glucose 144 H (68-110) mg/dl Calcium (8.5-10.1) mg/dL 05/13/18 05/13/18 05/13/18 Range/Units 08:22 12:48 13:19 Hgb (13.0-17.0) gm/dL Hct (39.0-51.0) % MCV (80.0-100.0) fL MCH (27.0-34.0) pg MCHC (32.0-36.0) % RDW (11.6-17.2) % Neut % (Auto) (16.0-70.0) % PT (9.8-11.6) sec Estimated GFR 76 L (>89) mL/min POC Glucose 158 H 145 H (68-110) mg/dl Calcium 8.4 L (8.5-10.1) mg/dL Short CBC 05/13/18 Range/Units 08:22 WBC 5.8 (4.0-11.0) th/mm3 Hgb 10.8 L (13.0-17.0) gm/dL Hct 34.5 L (39.0-51.0) % Plt Count 190 (150-450) th/mm3 BMP 05/13/18 08:22 Sodium 141 Potassium 4.4 Chloride 106 Carbon Dioxide 28.0 BUN 12 Creatinine 0.98 Calcium 8.4 L <JosenestorsalvatoreQuinten Perez - 05/13/18 17:43> Abnormal lab results 05/12/18 05/12/18 05/12/18 Range/Units 14:53 14:53 14:53 RBC 4.43 L (4.50-5.90) mil/mm3 Hgb 10.8 L (13.0-17.0) gm/dL Hct 33.8 L (39.0-51.0) % MCV 76.3 L (80.0-100.0) fL MCH 24.5 L (27.0-34.0) pg MCHC (32.0-36.0) % RDW 22.8 H (11.6-17.2) % Neut % (Auto) (16.0-70.0) % Archuleta % (Auto) 8.9 H (0.0-8.0) % PT 23.4 H (9.8-11.6) sec APTT 34.1 H (23.4-31.7) sec Estimated GFR 67 L (>89) mL/min POC Glucose (68-110) mg/dl Calcium (8.5-10.1) mg/dL Troponin I Less than 0.02 L (0.02-0.05) ng/mL B-Natriuretic Peptide (0-100) pg/mL 05/12/18 05/12/18 05/13/18 Range/Units 14:53 21:06 08:22 RBC (4.50-5.90) mil/mm3 Hgb (13.0-17.0) gm/dL Hct (39.0-51.0) % MCV (80.0-100.0) fL MCH (27.0-34.0) pg MCHC (32.0-36.0) % RDW (11.6-17.2) % Neut % (Auto) (16.0-70.0) % Archuleta % (Auto) (0.0-8.0) % PT 17.9 H (9.8-11.6) sec APTT (23.4-31.7) sec Estimated GFR (>89) mL/min POC Glucose 144 H (68-110) mg/dl Calcium (8.5-10.1) mg/dL Troponin I (0.02-0.05) ng/mL B-Natriuretic Peptide 268 H (0-100) pg/mL 05/13/18 05/13/18 05/13/18 Range/Units 08:22 08:22 12:48 RBC (4.50-5.90) mil/mm3 Hgb 10.8 L (13.0-17.0) gm/dL Hct 34.5 L (39.0-51.0) % MCV 76.1 L (80.0-100.0) fL MCH 23.8 L (27.0-34.0) pg MCHC 31.3 L (32.0-36.0) % RDW 22.0 H (11.6-17.2) % Neut % (Auto) 72.7 H (16.0-70.0) % Archuleta % (Auto) (0.0-8.0) % PT (9.8-11.6) sec APTT (23.4-31.7) sec Estimated GFR 76 L (>89) mL/min POC Glucose 158 H (68-110) mg/dl Calcium 8.4 L (8.5-10.1) mg/dL Troponin I (0.02-0.05) ng/mL B-Natriuretic Peptide (0-100) pg/mL 05/13/18 Range/Units 13:19 RBC (4.50-5.90) mil/mm3 Hgb (13.0-17.0) gm/dL Hct (39.0-51.0) % MCV (80.0-100.0) fL MCH (27.0-34.0) pg MCHC (32.0-36.0) % RDW (11.6-17.2) % Neut % (Auto) (16.0-70.0) % Archuleta % (Auto) (0.0-8.0) % PT (9.8-11.6) sec APTT (23.4-31.7) sec Estimated GFR (>89) mL/min POC Glucose 145 H (68-110) mg/dl Calcium (8.5-10.1) mg/dL Troponin I (0.02-0.05) ng/mL B-Natriuretic Peptide (0-100) pg/mL Short CBC 05/12/18 05/13/18 Range/Units 14:53 08:22 WBC 5.4 5.8 (4.0-11.0) th/mm3 Hgb 10.8 L 10.8 L (13.0-17.0) gm/dL Hct 33.8 L 34.5 L (39.0-51.0) % Plt Count 192 190 (150-450) th/mm3 BMP 05/12/18 05/13/18 14:53 08:22 Sodium 140 141 Potassium 3.8 4.4 Chloride 103 106 Carbon Dioxide 29.3 28.0 BUN 13 12 Creatinine 1.09 0.98 Calcium 8.7 8.4 L Cardiac Enzymes 05/12/18 Range/Units 14:53 Total Creatine Kinase 63 (39-308) U/L Troponin I Less than 0.02 L (0.02-0.05) ng/mL Liver Function 05/12/18 Range/Units 14:53 Total Bilirubin 0.5 (0.2-1.0) mg/dL AST 18 (15-37) U/L ALT 15 (12-78) U/L Alkaline Phosphatase 111 (45-117) U/L Albumin 3.6 (3.4-5.0) g/dL <Cong Winter - 05/13/18 13:50> - Imaging Impressions Chest Ultrasound 05/13/18 00:00 CONCLUSION: 1. Right pleural fluid volume insufficient for safe ultrasound-guided thoracentesis. 2. If there is concern regarding additional pleural fluid which might be loculated or otherwise appropriate for CT Guided Drainage, a CT chest examination is suggested <Quinten Davenport - 05/13/18 17:43> Impressions Chest X-Ray 05/12/18 14:51 CONCLUSION: Chronic interstitial changes and mild cardiomegaly. Chest Ultrasound 05/13/18 00:00 CONCLUSION: 1. Right pleural fluid volume insufficient for safe ultrasound-guided thoracentesis. 2. If there is concern regarding additional pleural fluid which might be loculated or otherwise appropriate for CT Guided Drainage, a CT chest examination is suggested <Cong Winter - 05/13/18 13:50> Physical Exam Vital signs: Vital Signs 05/12/18 18:08 05/12/18 19:17 05/12/18 20:00 Temperature 98.1 F 98.2 F Pulse Rate 69 64 67 Respiratory Rate 21 Blood Pressure 142/71 H 134/71 Pulse Oximetry 97 96 Pulse Oximetry [Exertion on Room Air] Pulse Oximetry [Resting on Room Air] 05/13/18 00:00 05/13/18 04:00 05/13/18 05:48 Temperature 98.3 F 97.4 F L Pulse Rate 75 65 65 Respiratory Rate 19 22 20 Blood Pressure 112/56 L 129/92 H Pulse Oximetry 90 L 94 L Pulse Oximetry [Exertion on Room Air] Pulse Oximetry [Resting on Room Air] 05/13/18 07:46 05/13/18 09:00 05/13/18 11:50 Temperature 98.3 F Pulse Rate 65 48 L Respiratory Rate 20 Blood Pressure 123/60 Pulse Oximetry 95 97 Pulse Oximetry [Exertion on Room Air] Pulse Oximetry [Resting on Room Air] 05/13/18 12:13 05/13/18 12:45 05/13/18 16:52 Temperature 98.4 F 98.6 F Pulse Rate 68 89 Respiratory Rate 18 18 Blood Pressure 112/60 128/63 Pulse Oximetry 96 96 Pulse Oximetry [Exertion on Room Air] 93 L Pulse Oximetry [Resting on Room Air] 96 Intake & Output 05/12/18 05/13/18 05/13/18 18:59 06:59 18:59 Output Total 500 / 500 Balance -500 / -500 Weight 109.316 kg Output: Urine 500 / 500 Other: Date of Last Bowel Movement 05/12/18 05/12/18 05/12/18 <Quinten Davenport - 05/13/18 17:43> Vital Signs 05/12/18 14:41 05/12/18 14:51 05/12/18 16:59 Temperature 97.9 F Pulse Rate 64 62 Respiratory Rate 21 18 Blood Pressure 129/71 129/71 Pulse Oximetry 97 98 97 Pulse Oximetry [Exertion on Room Air] Pulse Oximetry [Resting on Room Air] 05/12/18 18:08 05/12/18 19:17 05/12/18 20:00 Temperature 98.1 F 98.2 F Pulse Rate 69 64 67 Respiratory Rate 21 Blood Pressure 142/71 H 134/71 Pulse Oximetry 97 96 Pulse Oximetry [Exertion on Room Air] Pulse Oximetry [Resting on Room Air] 05/13/18 00:00 05/13/18 04:00 05/13/18 05:48 Temperature 98.3 F 97.4 F L Pulse Rate 75 65 65 Respiratory Rate 19 22 20 Blood Pressure 112/56 L 129/92 H Pulse Oximetry 90 L 94 L Pulse Oximetry [Exertion on Room Air] Pulse Oximetry [Resting on Room Air] 05/13/18 07:46 05/13/18 09:00 05/13/18 11:50 Temperature 98.3 F Pulse Rate 65 48 L Respiratory Rate 20 Blood Pressure 123/60 Pulse Oximetry 95 97 Pulse Oximetry [Exertion on Room Air] Pulse Oximetry [Resting on Room Air] 05/13/18 12:13 05/13/18 12:45 Temperature 98.4 F Pulse Rate 68 Respiratory Rate 18 Blood Pressure 112/60 Pulse Oximetry 96 Pulse Oximetry [Exertion on Room Air] 93 L Pulse Oximetry [Resting on Room Air] 96 Intake & Output 05/12/18 05/13/18 05/13/18 18:59 06:59 18:59 Output Total 500 / 500 Balance -500 / -500 Weight 109.316 kg Output: Urine 500 / 500 Other: Date of Last Bowel Movement 05/12/18 05/12/18 05/12/18 <Cong Winter - 05/13/18 13:50> Narrative: GENERAL: NAD, sitting comfortably in side of bed eating breakfast NEURO: AOx3. Normal speech. project manager/design manager grossly intact. SKIN: Warm and dry. HEAD: Normocephalic. Atraumatic. EYES: EOMI. No scleral icterus. No injection or drainage. ENT: No nasal drainage. Moist mucous membranes. No oral ulcers or lesions. NECK: Supple, trachea midline. No JVD. No carotid bruits. CARDIOVASCULAR: Regular rate and rhythm without murmurs, gallops, or rubs. Peripheral pulses 2+. Capillary refill < 2 seconds. RESPIRATORY: Breath sounds are diminished at the right lung base but improved aeration from admission, bibasilar rales, no wheezing. No respiratory distress. GASTROINTESTINAL: Abdomen soft, non-tender, nondistended. No organomegaly or masses. MUSCULOSKELETAL: No lower extremity edema. BACK: Nontender without obvious deformity. <Cong Winter - 05/13/18 14:53> Assessment and Plan - Assessment (1) Pleural effusion Code(s): J90 - Pleural effusion, not elsewhere classified Status: Acute (2) Dyspnea Code(s): R06.00 - Dyspnea, unspecified Status: Acute (3) Anemia Code(s): D64.9 - Anemia, unspecified Status: Chronic (4) Hypertension Code(s): I10 - Essential (primary) hypertension Status: Chronic (5) BPH (benign prostatic hyperplasia) Code(s): N40.0 - Benign prostatic hyperplasia without lower urinary tract symptoms Status: Chronic (6) COPD (chronic obstructive pulmonary disease) Code(s): J44.9 - Chronic obstructive pulmonary disease, unspecified Status: Chronic (7) Atrial fibrillation Code(s): I48.91 - Unspecified atrial fibrillation Status: Chronic (8) T2DM (type 2 diabetes mellitus) Code(s): E11.9 - Type 2 diabetes mellitus without complications Status: Chronic (9) Lung cancer Code(s): C34.90 - Malignant neoplasm of unspecified part of unspecified bronchus or lung Status: Chronic (10) Depression Code(s): F32.9 - Major depressive disorder, single episode, unspecified Status : Chronic (11) CKD (chronic kidney disease) Code(s): N18.9 - Chronic kidney disease, unspecified Status: Chronic <Quinten Davenport Ana - 05/13/18 17:43> (1) Pleural effusion Code(s): J90 - Pleural effusion, not elsewhere classified Status: Acute (2) Dyspnea Code(s): R06.00 - Dyspnea, unspecified Status: Acute (3) Anemia Code(s): D64.9 - Anemia, unspecified Status: Chronic (4) Hypertension Code(s): I10 - Essential (primary) hypertension Status: Chronic (5) BPH (benign prostatic hyperplasia) Code(s): N40.0 - Benign prostatic hyperplasia without lower urinary tract symptoms Status: Chronic (6) COPD (chronic obstructive pulmonary disease) Code(s): J44.9 - Chronic obstructive pulmonary disease, unspecified Status: Chronic (7) Atrial fibrillation Code(s): I48.91 - Unspecified atrial fibrillation Status: Chronic (8) T2DM (type 2 diabetes mellitus) Code(s): E11.9 - Type 2 diabetes mellitus without complications Status: Chronic (9) Lung cancer Code(s): C34.90 - Malignant neoplasm of unspecified part of unspecified bronchus or lung Status: Chronic (10) Depression Code(s): F32.9 - Major depressive disorder, single episode, unspecified Status : Chronic (11) CKD (chronic kidney disease) Code(s): N18.9 - Chronic kidney disease, unspecified Status: Chronic <Cong Winter - 05/13/18 14:43> - Assessment and Plan Very pleasant 72 year old man with a h/o lung cancer, radiation fibrosis of the lungs, a-fib, prior CO, CKD, MVR, prior TIA, HTN admitted due to recurrent pleural effusions causing dyspnea. Pleural effusion - Chest ultrasound done this AM showing right pleural fluid volume is insufficient for safe US-guided thoracentesis - Dyspnea has resolved - Ordered respiratory walk test prior to discharge - Albuterol nebs q2h prn SOB/wheezing, patient has documented severe allergy to ipratropium - Continuous pulse oximetry monitoring, supplemental oxygen if needed to maintain O2 sats > 92% A-fib - Continue atenolol - Resume home warfarin - Monitor INR COPD - Continue home symbicort - Albuterol nebs q2h prn HTN - Monitor vitals q4h - Continue home atenolol, per review of records from the [place] patient is not on other antihypertensives CKD: stable, per patient's record has h/o CKD stage 3 BPH: continue tamsulosin Anemia: chronic, known EDMAR, continue to monitor Depression: continue mirtazapine T2DM: patient reports this is diet-controlled, not on any home oral agents or insulin, monitor BGs ACHS Fluids: per PO Nutrition: heart healthy DVT ppx: b/l SCDs only, resume home warfarin <Cong Winter - 05/13/18 14:53> - Attending Attestation The exam, history, and the medical decision-making described in the above note were completed with the assistance of the resident physician. I reviewed and agree with the findings presented. I attest that I had a [id number] encounter with the patient on the same day, and personally performed and documented my assessment and findings in the medical record. no new symptoms, patient appears to be satting ok off the oxygen. despite [facility], ultrasound this AM did not find enough fluid to safely drain by IR. Gave dose of bumex here and will send out with daily loop to control this. he can continue to follow [facility]sy[facility] including oncologist to see if there is more fluid needing repeat studies. passed oxygen walk test today. may discharge. <Quinten Davenport - 05/13/18 17:43>
--- NOTE | 2018-05-13 18:35 | ECHRPT ---
Indication: SHORTNESS OF BREATH CONCLUSIONS The left ventricular systolic function is low normal with an estimated ejection fraction in the rang e of 50- 55%. Wall thickness is measured at the upper limits of normal. The right ventricular systoilc function is mildly decreased. Trace mitral valve regurgitation. There is mild tricuspid valve regurgitation. BP: / HR: Rhythm: Atrial fibrillation MEASUREMENTS (Male / Female) Normal Values Technical Quality:Fair 2D ECHO LV Diastolic Diameter PLAX 5.0 cm 4.2 - 5.9 / 3.9 - 5.3 cm LV Systolic Diameter PLAX 3.9 cm IVS Diastolic Thickness 1.1 cm 0.6 - 1.0 / 0.6 - 0.9 cm LVPW Diastolic Thickness 1.1 cm 0.6 - 1.0 / 0.6 - 0.9 cm LV Relative Wall Thickness 0.4 LVOT Diameter 2.0 cm Aortic Root Diameter 3.6 cm LA Systolic Diameter LX 4.8 cm 3.0 - 4.0 / 2.7 - 3.8 cm LV Ejection Fraction MOD 4C 50.5 % LV Ejection Fraction 4C AL 52.4 % M-MODE AV Cusp Separation MM 2.1 cm DOPPLER AV Peak Velocity 130.0 cm/s AV Peak Gradient 6.8 mmHg LVOT Peak Velocity 76.5 cm/s LVOT Peak Gradient 2.3 mmHg AV Area Cont Eq pk 1.8 cm Mitral E Point Velocity 96.3 cm/s TR Peak Velocity 288.0 cm/s TR Peak Gradient 33.2 mmHg Right Atrial Pressure 10.0 mmHg Pulmonary Artery Systolic Pressu 43.2 mmHg Right Ventricular Systolic Press 43.2 mmHg FINDINGS LEFT VENTRICLE Normal left ventricular size. Wall thickness is measured at the upper limits of normal. The left ventricular systolic function is low normal with an estimated ejection fraction in the rang e of 50- 55%. No regional wall motion abnormalities are present. RIGHT VENTRICLE The right ventricle is moderately dilated. The right ventricular systoilc function is mildly decreased. LEFT ATRIUM The left atrial size is normal. RIGHT ATRIUM The right atrial size is [id number] dilated. ATRIAL SEPTUM Normal atrial septal thickness. AORTA The aortic root and proximal ascending aorta are normal in size on limited imaging. MITRAL VALVE Trace mitral valve regurgitation. Mild thickening of the mitral valve leaflets. No mitral valve stenosis. AORTIC VALVE Diffuse calcification of the aortic valve. Trileaflet aortic valve. No aortic valve regurgitation. No aortic valve stenosis. TRICUSPID VALVE There is mild tricuspid valve regurgitation. Structurally normal tricuspid valve. PULMONARY VALVE No pulmonary valve regurgitation or stenosis. VESSELS The inferior vena cava is normal in size. PERICARDIUM Pleural effusion is present. Wong Toth DO (Electronically Signed) Final Date:13 May 2018 18:34
--- NOTE | 2018-05-14 06:29 | P.DS ---
Date of admission: 05/12/18 16:07 Primary care physician: [facility] Brief History from admission: Very pleasant 72 year old man with a h/o lung cancer, radiation fibrosis of the lungs, a-fib, prior OH, T2DM, CKD, MVR, prior TIA, iron-deficiency anemia, and HTN who was sent to the [place] from the [place] after a CT chest w/o contrast today showed: recurrent moderate right sided pleural effusion, new trace left pleural effusion, minimally increased airspace disease at the right lung apex, increased right lower lobe nodular opacities measuring up to 0.4 x 0.6 cm. The patient presented to the [place] ED due to progressive dyspnea. He reports he was diagnosed with lung cancer back in 2008 and underwent chemo and radiation therapy up until early 2011. He states he has been in remission since then. The patient reports he had been treated for pneumonia in the past most recently about one year ago, and does report having had issues with recurrent pleural effusion; however he denies ever having had a thoracentesis in the past. He denies shortness of breath currently. He denies chest tightness, chest pain, cough, fevers, headaches, abdominal pain. He states he otherwise feels well. Has been feeling dyspneic for about the past one week. He follows with an oncologist at the [place], Dr. Allen. 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 Currently lives with his daughter. Endorses heavy cigarette smoking history up to 2-3 PPD for 40 years but now smoking just a few cigarettes every other day for the past ten days. DS: Summary - Time Spent with Patient Total time spent providing and/or coordinating discharge services: - Quality: VTE Deep Vein Thrombosis/Pulmonary Embolism Present on Admission: No Exam Vital signs: Vital Signs 05/13/18 07:46 05/13/18 09:00 05/13/18 11:50 Temperature 98.3 F Pulse Rate 65 48 L Respiratory Rate 20 Blood Pressure 123/60 Pulse Oximetry 95 97 Pulse Oximetry [Exertion on Room Air] Pulse Oximetry [Resting on Room Air] 05/13/18 12:13 05/13/18 12:45 05/13/18 16:52 Temperature 98.4 F 98.6 F Pulse Rate 68 89 Respiratory Rate 18 18 Blood Pressure 112/60 128/63 Pulse Oximetry 96 96 Pulse Oximetry [Exertion on Room Air] 93 L Pulse Oximetry [Resting on Room Air] 96 Intake & Output 05/13/18 05/13/18 05/14/18 06:59 18:59 06:59 Output Total 500 / 500 Balance -500 / -500 Output: Urine 500 / 500 Other: Date of Last Bowel Movement 05/12/18 05/12/18 Results Labs on day of discharge: Labs from last 24 hours 05/13/18 05/13/18 05/13/18 13:19 12:48 08:22 WBC RBC Hgb Hct MCV MCH MCHC RDW Plt Count MPV Neut % (Auto) Lymph % (Auto) Carson % (Auto) Eos % (Auto) Baso % (Auto) Neut # (Auto) Lymph # (Auto) Carson # (Auto) Eos # (Auto) Baso # (Auto) WBC Differential Differential Comment PT INR Sodium 141 Potassium 4.4 Chloride 106 Carbon Dioxide 28.0 Anion Gap 7 BUN 12 Creatinine 0.98 Estimated GFR 76 L POC Glucose 145 H 158 H Random Glucose 96 Calcium 8.4 L 05/13/18 05/13/18 05/13/18 08:22 08:22 08:21 WBC 5.8 RBC 4.53 Hgb 10.8 L Hct 34.5 L MCV 76.1 L MCH 23.8 L MCHC 31.3 L RDW 22.0 H Plt Count 190 MPV 7.4 Neut % (Auto) 72.7 H Lymph % (Auto) 17.1 Carson % (Auto) 7.4 Eos % (Auto) 2.4 Baso % (Auto) 0.4 Neut # (Auto) 4.2 Lymph # (Auto) 1.0 Carson # (Auto) 0.4 Eos # (Auto) 0.1 Baso # (Auto) 0.0 WBC Differential . Differential Comment Auto diff final PT 17.9 H INR 1.8 Sodium Potassium Chloride Carbon Dioxide Anion Gap BUN Creatinine Estimated GFR POC Glucose 94 Random Glucose Calcium - Impressions ITS Impressions Chest X-Ray 05/12/18 14:51 CONCLUSION: Chronic interstitial changes and mild cardiomegaly. Chest Ultrasound 05/13/18 00:00 CONCLUSION: 1. Right pleural fluid volume insufficient for safe ultrasound-guided thoracentesis. 2. If there is concern regarding additional pleural fluid which might be loculated or otherwise appropriate for CT Guided Drainage, a CT chest examination is suggested Discharge Plan - Discharge Disposition Patient Disposition: 01 Discharge Home - Discharge Condition Condition: Stable - Discharge Order Discharge Orders: Discharge Order (Routine); Ordered 05/13/18 Ordered By: Cong Winter - Discharge Details Anticipated Discharge Date: 05/13/18 - Physicians Team Primary Care Provider: [facility]ician 's Attending Provider: Quinten Davenport
== END 2018-05-13 18:43 | disposition home or self-care (01) ==
LOC: NEDA 14:21 → NEPE 14:21 → NEPHCDU 17:56
PROVIDERS: ADMIT Family Medicine; ATTEND Family Medicine
DX: Z86.73 Personal history of transient ischemic attack (TIA), and cerebral infarction without residual deficits; I34.0 Nonrheumatic mitral (valve) insufficiency; C34.90 Malignant neoplasm of unspecified part of unspecified bronchus or lung; Z79.01 Long term (current) use of anticoagulants; F32.9 Major depressive disorder, single episode, unspecified; Z88.8 Allergy status to other drugs, medicaments and biological substances; D64.9 Anemia, unspecified; N40.0 Benign prostatic hyperplasia without lower urinary tract symptoms; I48.2 Chronic atrial fibrillation; E11.22 Type 2 diabetes mellitus with diabetic chronic kidney disease; I12.9 Hypertensive chronic kidney disease with stage 1 through stage 4 chronic kidney disease, or unspecified chronic kidney disease; K21.9 Gastro-esophageal reflux disease without esophagitis; C44.90 Unspecified malignant neoplasm of skin, unspecified; F17.210 Nicotine dependence, cigarettes, uncomplicated; J84.10 Pulmonary fibrosis, unspecified; I25.2 Old myocardial infarction; J44.9 Chronic obstructive pulmonary disease, unspecified; J90 Pleural effusion, not elsewhere classified; Z87.01 Personal history of pneumonia (recurrent); N18.3 Chronic kidney disease, stage 3 (moderate)